=== PATIENT | female | born 1985 | race Hispanic/Latino ===

== ENCOUNTER 2024-05-19 10:52 | Emergency (ER) | payer BC ==
[2024-05-19] MEDS ORDERED: Ondansetron ODT 4 MG TAB ONE (11:18)
== END 2024-05-19 12:05 | disposition home or self-care (01) ==
LOC: MADERS 10:52
DX: F41.9 Anxiety disorder, unspecified (principal)
CPT/HCPCS: 36416; 71046; 93005; Q0162